=== PATIENT | male | born 1950 ===

== ENCOUNTER 2023-10-17 16:03 | Observation (INO) ==
--- NOTE | 2023-10-17 16:19 | Emergency Department Note ---
Impression & Plan Chest pain ED Provider Note HISTORY OF PRESENT ILLNESS: Patient is a 72-year-old male presenting with chest pain. Patient reports that he has had recurrent episodes of chest pain in the last 3 days. He states that today he was having crushing chest pain" felt like an elephant was sitting on my chest." He was diaphoretic and short of breath. He resides at [facility] facility and they called 911. On EMS arrival, the patient was diaphoretic and had a heart rate of 40. His blood pressure was 150s systolic and they started pacing him. They report that the patient's chest pain improved with pacing. They called medical command and I asked that they stop pacing him and his blood pressure and heart rate remained stable. Patient is not currently on any anticoagulation. He does have a history of stents in his right leg. He is not currently on any anticoagulation or antiplatelet therapy. He was given 324 mg of p.o. aspirin prehospital. On arrival to the ER, the patient is complaining of crushing chest pain. ROS: as above PHYSICAL EXAM: Constitutional: Patient appears in no acute distress. HENT: Head: Normocephalic and atraumatic. Eyes: EOMI, PERRL Mouth/Throat: Mucous membranes moist. Neck: Trachea midline. Neck supple. Cardiovascular: RRR, No murmurs, rubs or gallops. Intact distal pulses. Pulmonary/Chest: No respiratory distress. Breath sounds clear and equal bilaterally. No wheezes or rales. Abdominal: Abdomen soft, no tenderness, rebound or guarding. Musculoskeletal: No edema, tenderness or deformity noted. Skin: Warm and dry. No rash, erythema, pallor or cyanosis Psychiatric: Appropriate mood and affect for situation. Neurological: Alert and keenly responsive. CN II-XII grossly intact, moving all extremities equally and fully. MDM: - Patient's second prehospital EKG that was transmitted by EMS showed that the patient has significant ST depressions in lead II and ST elevations in aVL, V4, V5 and V6. He was alerted as a heart alert prehospital. - Vitals signs showed hypertension. - History obtained via patient. Patient presents with chest pain. Patient reports recurrent chest pain for the last 3 days. [facility] he developed substernal chest pain that was a crushing sensation. He felt like elephant's were sitting on his chest. The facility called 911. On EMS arrival, the patient was found to be diaphoretic and complaining of pain. He was given aspirin. On arrival to the ER, patient is still complaining of chest pain. Denies any history of cardiac stents. Denies any DVT or PE history. He is not currently on anticoagulation. - Chronic conditions affecting care: Acute arterial ischemia of the right lower extremity - Differential diagnoses include, but are not limited to: Acute coronary syndrome; pulmonary embolism; dissection; tension pneumothorax; esophageal rupture; pneumonia - Order placed for continuous cardiac monitoring. At this time, monitor showed rate of 56 bpm with normal sinus rhythm, per my interpretation. - External medical records reviewed. EMS run sheet was reviewed. Patient was vitally stable and route. - EKG interpreted by myself showed normal sinus rhythm. Rate 60 bpm. QTc is 420. Noted to have some ST elevation in V3 through V5. Also noted to have some ST depressions in leads II and subtly in lead III. - Dr. Johnson with interventional cardiology came to ER to discuss lab support tech with patient. - Discussion was had with home health care provider about patient's case and need for admission - Hospitalist consulted for admission - Patient admitted to [facility] service for further evaluation and management. - Patient taken to lab support tech and admit to [facility] hospitalist after ASSESSMENT AND PLAN: Diagnosis: chest pain Plan: to lab support tech Past Med/Surg History Social History Smoking Status: Current some day smoker Feels Safe at Home: Yes Allergies Allergies Allergy/AdvReac Type Severity Reaction Status Date / Time No Known Allergies Allergy Unverified 10/17/23 16:19 Home Meds Home Medications Medication Instructions Recorded Confirmed acetaminophen 325 mg tablet 650 mg PO QID PRN pain or headache 10/17/23 10/17/23 multivitamin with minerals 1 tab PO DAILY 10/17/23 10/17/23 prazosin 1 mg capsule 1 mg PO HS 10/17/23 10/17/23 quetiapine 50 mg tablet (Seroquel) 50 mg PO HS 10/17/23 10/17/23 sertraline 100 mg tablet 100 mg PO DAILY 10/17/23 10/17/23 sertraline 50 mg tablet 50 mg PO DAILY 10/17/23 10/17/23 Results & Data (ED) Vital Signs Vital Signs - 24 hr 10/17/23 16:07 10/17/23 16:09 10/17/23 16:10 Temperature 36.5 C Temperature Source Oral Pulse Rate 53 L 49 L 53 L Pulse Rate from SpO2 Sensor 53 L Respiratory Rate 16 21 19 Respiratory Depth Normal Blood Pressure 189/77 H Blood Pressure Mean 114 Pulse Oximetry 99 100 Oxygen Delivery Method Room Air Oxygen Flow Rate Sepsis Recent Fever Within 48 Hours No Sepsis New/Unexplained Change in Mental Status No Sepsis Action Taken by Nursing No Action Required 10/17/23 16:10 10/17/23 16:14 10/17/23 16:39 Temperature Temperature Source Pulse Rate 56 L Pulse Rate from SpO2 Sensor Respiratory Rate Respiratory Depth Blood Pressure 189/77 H Blood Pressure Mean 114 Pulse Oximetry 96 Oxygen Delivery Method Room Air Oxygen Flow Rate 0 Sepsis Recent Fever Within 48 Hours Sepsis New/Unexplained Change in Mental Status Sepsis Action Taken by Nursing Laboratory Data 10/17/23 16:20 Discharge Plan Visit Data Chief Complaint: Chest Pain ED Provider: Kayleigh Ramos Discharge Problem: Chest pain Forms Stand Alone Forms: [facility] Prescriptions Prescriptions: No Action multivitamin with minerals Tablet 1 tab PO DAILY quetiapine [Seroquel] 50 mg Tablet 50 mg PO HS prazosin 1 mg Capsule 1 mg PO HS sertraline 100 mg Tablet 100 mg PO DAILY sertraline 50 mg Tablet 50 mg PO DAILY acetaminophen 325 mg Tablet 650 mg PO QID PRN (Reason: pain or headache) Referrals Referrals: PCP,NO [Primary Care Provider] -
--- NOTE | 2023-10-17 16:24 | Pre Anesthesia Assessment ---
Date of Service October 17, 2023 Pre Sedation Assessment Vital Signs Temp Pulse Resp BP Pulse Ox O2 Del Method O2 Flow Rate 10/17/23 16:14 96 Room Air 0 10/17/23 16:10 189/77 H 10/17/23 16:10 53 L 19 100 10/17/23 16:09 49 L 21 10/17/23 16:07 97.7 F 53 L 16 189/77 H 99 Room Air Cardiovascular + regular rate Respiratory + respiratory effort normal Pre-Sedation Airway Assessment Smoking Status: Current some day smoker Hx Sleep Apnea: No Hx Difficult Intubation: No Short, Thick Neck: No Thyromental Distance: > or= 3.5 Finger Breadths Mallampati Class: III ASA: ASA3 Procedure Planning Contraindications for Sedation: none Current Medications Reviewed: Yes Notes The planned sedation has been discussed with the patient. Informed Consent was obtained. I have identified the patient, determined the appropriateness of sedation and have assessed the patient immediately prior to the procedure. All medicine(s) and interventions are by my order.
--- NOTE | 2023-10-17 16:26 | Cardiology Consultation ---
Date of Consultation October 17, 2023 Assessment & Plan (1) Chest pain: Plan Patient with prior ASCVD history here with acute onset severe chest pain and subtle ST changes on ECG. Some suspicion for ACS and with ongoing severe chest pain recommend further evaluation with cardiac catheterization. No apparent contraindications to procedure. Discussed risks, benefits, alternatives of procedure with patient and they are willing to proceed. Further recommendations pending findings of coronary angiography. History of Present Illness History of Present Illness Mr. North is a 72-year-old male here with acute chest pain, subtle ECG changes suspicious for ACS. Patient seen emergently in the ED after heart alert activated en route. Patient is from [place] and is [facility] Details of his prior cardiovascular history unclear. He states had prior stent to his right leg and denies prior heart catheterization. Does state he was previously seen by clinical professor at the [facility] for [facility]. Patient denies history of diabetes, stroke, kidney issues. Today developed acute substernal chest pain radiating to his right shoulder. Describes as crushing, like elephant sitting on my chest. States has had intermittent similar pain 3 times over the last few days at time of arrival chest pain 8 out of 10. Per report patient was bradycardic to 40, diaphoretic at some point during transport and was transiently transcutaneously paced. ECG and route showed sinus rhythm with subtle concave up ST elevation in V4, V5, no reciprocal changes. Social history: Still smokes. Lives with family in [place]. Alejandro Pedraza [phone] Allergies Allergy/AdvReac Type Severity Reaction Status Date / Time No Known Allergies Allergy Unverified 10/17/23 16:19 Home Medications Medication Instructions Recorded Confirmed Type acetaminophen 325 mg tablet 650 mg PO QID PRN pain or headache 10/17/23 10/17/23 History multivitamin with minerals 1 tab PO DAILY 10/17/23 10/17/23 History prazosin 1 mg capsule 1 mg PO HS 10/17/23 10/17/23 History quetiapine 50 mg tablet (Seroquel) 50 mg PO HS 10/17/23 10/17/23 History sertraline 100 mg tablet 100 mg PO DAILY 10/17/23 10/17/23 History sertraline 50 mg tablet 50 mg PO DAILY 10/17/23 10/17/23 History Patient History Social History Smoking Status: Current some day smoker Feels Safe at Home: Yes Review of Systems Review of Systems: Not completed in the setting of emergent situation Physical Exam Physical Exam: General: Uncomfortable HEENT: Sclerae anicteric Lungs: Clear anteriorly Cardiac: Regular rate and rhythm, no murmurs. Vascular: 2+ radial Abdomen: Soft, nontender Extremities: Well perfused, no peripheral edema Neuro: Nonfocal Psych: Alert orient x3, normal affect and mood Results & Data Vital Signs (Past 12 Hours) Vital Signs Temp Pulse Resp BP Pulse Ox O2 Del Method O2 Flow Rate 10/17/23 16:14 96 Room Air 0 10/17/23 16:10 189/77 H 10/17/23 16:10 53 L 19 100 10/17/23 16:09 49 L 21 10/17/23 16:07 97.7 F 53 L 16 189/77 H 99 Room Air PG Care Time/CCT Total # of Minutes Spent Total Time Spent with Patient: Total time spent is greater than 50% in coordination of care (as documented) at patient's floor/unit and/or counseling patient: Coding Level of Care Code 19343 ER DEPT VISIT MOD LVL 4 Diagnoses Chest pain R07.9
[2023-10-17] MEDS: HEPARIN (PORCINE) 1000 UNIT/ML 10 ML (CATH LAB USE ONLY) ONE (16:45)
[2023-10-17] MEDS: MIDAZOLAM HCL 1 MG/ML 2ML VIAL ONE (16:45)
[2023-10-17] MEDS: fentaNYL citrate PF 100 MCG/2 ML VIAL ONE (16:45)
[2023-10-17] MEDS: niCARdipine HCL INJ 2.5 MG/ML 10 ML AMP ONE (16:46)
[2023-10-17] MEDS: OPTIRAY 350 ONE (16:46)
[2023-10-17] MEDS: NITROGLYCERIN/D5W 100MCG/ML 20ML SYR ONE (16:46)
[2023-10-17 16:59] LABS: Alanine Aminotransferase 6 U/L (7-52); Albumin Globulin Ratio 1.3 (0.9-2); Alkaline Phosphatase 44 U/L (34-104); Anion Gap 6 (3-11); Aspartate Aminotransferase 16 U/L (13-39); BUN Creatinine Ratio 18.1 (10-20); Bilirubin,Total 0.3 mg/dl (0.2-1.0); Blood Urea Nitrogen 17 mg/dl (6-23); Calcium 9.4 mg/dl (8.6-10.3); Carbon Dioxide 25 mmol/L (21-32); Chloride 106 mmol/L (98-107); Est GFR (African American) 94.2 ml/min; Est GFR (Non-African American) 81.2 ml/min; Globulin 3.2 gm/dl (2.5-4.0); Glucose 89 mg/dl (70-99(Fasting)); Lipase 35 U/L (11-82); Potassium 4.2 mmol/L (3.5-5.1); Sodium 137 mmol/L (136-145); Total Protein 7.2 gm/dl (6.0-8.3)
[2023-10-17 17:02] LABS: Troponin I High Sensitivity 12.7 pg/ml (0-20)
--- NOTE | 2023-10-17 17:05 | Post Anesthesia Assessment ---
Date of Service October 17, 2023 Post Sedation Assessment Vital Signs Temp Pulse Pulse Resp BP BP Pulse Ox 10/17/23 17:00 55 L 18 131/89 96 10/17/23 16:55 52 L 18 141/85 H 96 10/17/23 16:39 56 L 10/17/23 16:14 96 10/17/23 16:10 189/77 H 10/17/23 16:10 53 L 19 100 10/17/23 16:09 49 L 21 10/17/23 16:07 97.7 F 53 L 16 189/77 H 99 O2 Del Method O2 Flow Rate 10/17/23 17:00 Room Air 10/17/23 16:55 Room Air 10/17/23 16:39 10/17/23 16:14 Room Air 0 10/17/23 16:10 10/17/23 16:10 10/17/23 16:09 10/17/23 16:07 Room Air Recovery Score Activity: Moves 4 extremities Respiration: Deep Breath/Cough Circulation: +/-20% PreAnes Value Consciousness: Fully Awake Oxygen Saturation: > 92% On Room Air Post Anesthesia Score: 10 Discharge Sedation Level of Care: Fast Track Phase II Post Sedation Plan On clinical assessment, the patient appears to have tolerated the sedation without complications. Patient is recovering as anticipated. Patient will continue to be monitored by nursing and may be discharged when sedation discharge criteria are met per below protocol. Upon Completions of procedure up to 15 minutes continue every 5 minute vital signs and the P.A.R. score; then discharge to a Phase I or Fast Track to Phase II per the following guidelines: * Discharge Patient to appropriate Phase II area if PAR is 8 or greater or return to pre- procedure baseline. The post - procedure orders will be as directed. * If PAR score is less than 8 or not return to pre-procedure baseline then patient will follow Phase I monitoring till PAR is reached for Phase II. The Phase I may be done in procedure room or may call to secure a Phase I area. * If naloxone or flumazenil are used for reversal, hold in Phase I for continued monitoring from when last reversal dose was given for a minimum of 60 minutes or longer pending the nurse and/or physician discretion of patient condition before discharge to Phase II. Please call the Sedation Physician to re-evaluate and complete post-note for discharge to Phase II area. Do NOT discharge from procedure sedation or Phase 1 until post- sedation evaluation note is complete by procedure /sedation MD Sedation Discharge Instructions to be given to the patient at discharge to home.
--- NOTE | 2023-10-17 17:16 | History & Physical Report ---
Date of Service October 17, 2023 Assessment & Plan (1) Chest pain: Plan: Patient with sudden onset chest pain 8/10 Pain radiates between his shoulder blades, improved to 1/10 with a tripod position.? Diffuse ST changes on EKG consistent with pericarditis. Echo is pending. CRP is not elevated Patient denies recent respiratory symptoms however on discussion with [facility] patient was treated for an upper respiratory in September 04. ?Pericarditis. Troponin is normal. Echo is pending History of prior cardiac stents, aspirin resumed as noted. Patient recently travel by flight to [place] and endorses left leg discomfort intermittently which she has had before but which has recurred in addition to shortness of breath and some pain with deep breathing. D-dimer was elevated. Due to elevated D-dimer, pain between shoulder blades, and chest pain with additional risk factors CTA was ordered with prehydration. CTA does not show any evidence of PE or acute dissection. Lower extremity Dopplers pending for follow-up. bronchial wall thickening suspicious for infectious/inflammatory process is noted Troponin trended (2) PTSD (post-traumatic stress disorder): Plan: Patient is a resident of [facility] who is at [facility] locally for PTSD/mental health treatment. He has a former history of crack/alcohol use which has been in remission for over a decade. [facility] patient had previously been on mirtazapine 30 mg daily, olanzapine 20 mg daily, prazosin 4 mg daily, duloxetine 60 mg daily, and aspirin however these were all discontinued in September. Fill record shows patient had been taking sertraline 150 mg daily, Seroquel 50 mg at bedtime, and prazosin 1 mg at bedtime. Patient reports he has not been taking medications in several weeks, and is not sure what medications he was last on. Low risk of withdrawal as he has not been on any medications for several weeks. Once past medication been clarified can restart at a low dose and uptitrate as clinically indicated. Currently he does not have a anxiety/depression/PTSD acute decompensation. Denies SI/HI (3) CAD (coronary artery disease): Plan: Patient has not been taking any medications for several months Patient has indwelling cardiac stents, aspirin 81 mg resumed Patient denies medication allergies. Presumably should be on atorvastatin 40 mg. Lipid panel pending. 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 He is a a [facility] patient. Per EMS he was paced for rate of 40. On arrival to the hospital he continued to have crushing substernal chest pain. Received aspirin full dose prehospital. Patient seen postcatheterization, normal coronary arteries although he has multiple indwelling RCA stents noted. Patient notes that he did have stents placed which she thought were is in his groin but this was in the setting of chest pain clarify that is likely they used groin access to place cardiac stent s. He reports this was this past May. Patient reports he has 8/10 chest pain while laying back which improves to a 1/10 when in the tripod position.? Diffuse changes on EKG consistent with pericarditis. Patient denies recent fever, cough, and flulike symptoms. No dysuria. No diarrhea/constipation. He does endorse that his pain radiates in between his shoulder blades. He reports he is a little numb intermittently on his right side with no history of strokes. He arrived in [place] after taking a several hour flight from [facility]. He arrived here last Sunday to go to [facility] for PTSD treatment. He reports that he does have a history of crack and alcohol abuse but this has been in remission since 2011 [facility]. Patient's last known medications were as follows. These were active September 04, 2023 however for some reason which is unclear were all moved to inactive status. Full records pending fax from [facility] in [facility], medical request faxed to [phone] Mirtazapine 30 mg daily Olanzapine 20 mg daily Prazosin 4 mg daily Duloxetine 60 mg daily Aspirin 81 mg Given unclear medical reconciliation (patient is not a good historian of his medications, and last known reconciliation is substantially different from fill history with Seroquel/sertraline, and above medications were listed as inactive for unclear reasons and patient has not been taking any medications for 6 around 6 months will defer acute initiation of pharmacologic therapy until intendant medications are clear and full records are faxed. At this time he feels his depression/anxiety are reasonably controlled and does not need emergent initiation of new medications and has he has not been taking any medications for several weeks is not at risk of acute precipitated withdrawal Allergies Allergy/AdvReac Type Severity Reaction Status Date / Time No Known Allergies Allergy Unverified 10/17/23 16:19 Home Medications Medication Instructions Recorded Confirmed Type acetaminophen 325 mg tablet 650 mg PO QID PRN pain or headache 10/17/23 10/17/23 History multivitamin with minerals 1 tab PO DAILY 10/17/23 10/17/23 History prazosin 1 mg capsule 1 mg PO HS 10/17/23 10/17/23 History quetiapine 50 mg tablet (Seroquel) 50 mg PO HS 10/17/23 10/17/23 History sertraline 100 mg tablet 100 mg PO DAILY 10/17/23 10/17/23 History sertraline 50 mg tablet 50 mg PO DAILY 10/17/23 10/17/23 History Past Med/Surg History Social History Smoking Status: Current some day smoker Feels Safe at Home: Yes Physical Exam Physical Exam: General: A&Ox3. NAD. Cooperative. HEENT: Atraumatic, normocephalic. Vision/hearing grossly intact Pulm: Trace end expiratory scattered wheezing, without rales/rhonchi symmetrical chest rise. No increased work of breathing. No respiratory distress. Cardiac: RRR, -mrg. Radial pulses intact and symmetrical. Chest pain improves in tripod position Abdominal: Nontender, nondistended, soft. BS present. Ext: No pitting edema. RIGHT leg laterally TTP, <3cm calf assymetry preent. Sensation/strength grossly intact Results & Data Results & Data Vital Signs (Past 12 Hours) Vital Signs Temp Pulse Pulse Resp BP BP Pulse Ox 10/17/23 17:00 55 L 18 131/89 96 10/17/23 16:55 52 L 18 141/85 H 96 10/17/23 16:39 56 L 10/17/23 16:14 96 10/17/23 16:10 189/77 H 10/17/23 16:10 53 L 19 100 10/17/23 16:09 49 L 21 10/17/23 16:07 36.5 C 53 L 16 189/77 H 99 O2 Del Method O2 Flow Rate 10/17/23 17:00 Room Air 10/17/23 16:55 Room Air 10/17/23 16:39 10/17/23 16:14 Room Air 0 10/17/23 16:10 10/17/23 16:10 10/17/23 16:09 10/17/23 16:07 Room Air Code Status & VTE Plan VTE Prophylaxis Plan VTE Prophylaxis will be ordered: Yes PG Care Time/CCT Total # of Minutes Spent Total Time Spent with Patient: Total time spent is greater than 50% in coordination of care (as documented) at patient's floor/unit and/or counseling patient: Coding Level of Care Code 01378 INT INP/OBS CARE 3/75MIN Diagnoses Chest pain R07.9 PTSD (post-traumatic stress disorder) F43.10 CAD (coronary artery disease) I25.10 Substance abuse in remission F19.11 Tobacco abuse Z72.0
--- NOTE | 2023-10-17 17:17 | Cardiac Catheterization ---
[facility] Data: Visual Journalist Cardiac Status Clinical evaluation leading to the procedure CAD Presenation: Unstable angina Anginal Classification: CCS IV Diagnostic Physicians Name: Dereck Johnson MD Closure Device Recommendations: None Cardiac Cath Procedure Full Procedure Date October 17, 2023 Pre-Procedure Diagnosis Pre-Procedure Diagnosis: Acute Coronary Syndrome AUC Score AUC Score: 7 Post-Procedure Diagnosis Post-Procedure Diagnosis: Moderate CAD and Normal Intracardiac Pressures Procedure(s) Performed Procedure(s) Performed: Coronary Angiography and Left Heart Cath Supervisor Extrusion Dereck Johnson MD Sterile Process Coordinator(s) Diebler Estimated Blood Loss Estimated Blood Loss: 10 Medication(s) Medication(s): Fentanyl, Heparin, Lidocaine 1%, Nicardipine, Nitroglycerin and Versed Summary of Findings Indication: Suspected ACS Access: 6 Fr right radial artery Catheters: Diagnostic JL 3.5, JR4 Findings: LM -normal caliber, long vessel, 40% distal stenosis prior to bifurcation LAD -medium caliber, 30% ostial, 30% earlymid stenosis at takeoff of D1, 40% latemid stenosis, distal vessel without significant disease and wraps around apex. Circumflex -medium caliber, overlapping stents from ostium to distal vessel widely patent without significant ISR. High jailed OM1 with 70% ostial stenosis. Medium OM 3 without disease. RCA -dominant, medium caliber, 30 to 40% proximal to mid disease, distal vessel without significant disease. Medium PDA without disease. LVEDP -3 Arterial Closure: TR band Summary: 1. Moderate nonobstructive coronary artery disease -40% distal left main 40% mid LAD Ostial to distal circumflex stents widely patent. Jailed OM1 70% ostial 30% proximal to mid RCA 2. Normal intracardiac filling pressure Recommendations: No high risk or obstructive CAD to explain patient's current chest pain. Will admit to telemetry for further evaluation of noncardiac causes of chest pain. Echocardiogram in the a.m. ASCVD risk factor modification Hemodynamics Rest Ao:: 102/38/76 Final Ao: 136/57/88 LV: 119/3 Recommendations Recommendations: None Radiation Exposure (mGy) 554 Contrast (mls) 40 Anesthesia Moderate [id number] Procedural Complication(s) None Disposition PCU I attest to the content of the Intraoperative Record and any orders documented therein. Any exceptions are noted below. [facility] Card Cath Procedure Codes Cardiac Catheterization Procedure 1: Cardiovascular Cath Procedures: 45722 Coronaries and LHC (+/-LV) Moderate Sedation Procedure 1: Sedation/Anesthesia: 45249 Mod Sedation by the same physician;Init15 Min Child Age 5 & Up PG Care Time/CCT Total # of Minutes Spent Total Time Spent with Patient: Total time spent is greater than 50% in coordination of care (as documented) at patient's floor/unit and/or counseling patient:
[2023-10-17 17:57] LABS: Basophils # (auto) 0.03 K/uL (0.00-0.20); Basophils % (auto) 0.6 %; Eosinophils % (auto) 2.1 %; Hematocrit (blood only) 31.1 % (42.0-52.0); Hemoglobin 10.3 g/dl (14.0-18.0); Immature Granulocytes # (auto) 0.01 K/uL (0.01-0.20); Immature Granulocytes % (auto) 0.2 %; Lymphocytes # (auto) 2.06 K/uL (1.20-3.40); Lymphocytes % (auto) 43.8 %; Mean Corpuscular Hemoglobin 26.3 pg (25.0-34.0); Mean Corpuscular Hgb Conc 33.1 g/dL (32.0-36.0); Mean Corpuscular Volume 79.5 fL (80.0-100.0); Mean Platelet Volume 9.3 fL (9.4-12.4); Monocytes # (auto) 0.48 K/uL (0.11-0.59); Monocytes % (auto) 10.2 %; Neutrophils # (auto) 2.02 K/uL (1.40-6.50); Neutrophils % (auto) 43.1 %; Platelet Count 209 K/uL (130-400); RDW Coefficient of Variation 18.3 % (11.5-14.5); RDW Standard Deviation 53.1 fL (36.4-46.3); Red Blood Count 3.91 M/uL (4.70-6.10)
[2023-10-17 17:59] LABS: D Dimer 1820 ug/L FEU (0-500)
[2023-10-17] MEDS: OPTIRAY 320 125ml IV ONE (18:25)
[2023-10-17 18:34] LABS: C Reactive Protein < 0.50 mg/dl (0-0.5)
--- NOTE | 2023-10-17 18:44 | CT Scan Report ---
CT angio chest PE protocol CLINICAL HISTORY: PE TECHNIQUE: Multidetector row helical CT of the chest was performed with angiographic protocol. Trevino l and sagittal reformations were obtained. Coronal and sagittal MIPS were obtained from the axial jc a set and were submitted for review. Automated dose lowering techniques and/or adjustment according to patient size were utilized for this exam. CT DOSE: 709.89 mGy.cm Comparison: None available at the time of this dictation. FINDINGS: Lungs and pleura: Bronchial wall thickening and mild emphysema are seen. Heart and pericardium: Heart size is normal. No pericardial effusion. Vessels: No evidence of pulmonary embolism. Mediastinum and rosa: Subcentimeter lymph nodes are seen. Chest wall and lower neck: Unremarkable. Abdomen: Unremarkable. Bones: Degenerative changes in the thoracic spine. IMPRESSION: 1. No acute abnormality and in particular no evidence of pulmonary embolus. 2. Bronchial wall thickening may represent infectious/inflammatory process. ACT 112: Negative or not required by law. Electronically signed by: Rafa Og M.D. 10/17/2023 6:41 PM
[2023-10-17] MEDS: LACTATED RINGER'S 1,000 ML IV ONE (18:47)
[2023-10-17] MEDS ORDERED: NICOTINE 14 MG/24 HR PATCH TD PRN (19:17)
[2023-10-17 20:00] LABS: Ferritin 7.4 ng/ml (8-388)
[2023-10-17] MEDS: SODIUM CHLORIDE 0.9% 1,000 ML IV SCH (20:43)
[2023-10-17 20:47] LABS: Influenza A virus by PCR Negative (Neg); Influenza B virus by PCR Negative (Neg); RSV by PCR Negative (Neg); SARS CoV2 RNA(COVID-19) Ceph NEGATIVE (Negative)
--- NOTE | 2023-10-17 21:22 | Ultrasound Report ---
Exam(s): US VENOUS BILATERAL LOWER EXTREMITIES EXAM: US Duplex Bilateral Lower Extremities Veins CLINICAL HISTORY: Reason for exam: ddimer, leg pain. TECHNIQUE: Real-time duplex ultrasound scan of the bilateral lower extremity veins integrating B-mode two-dimensional vascular structure, Doppler spectral analysis, color flow Doppler imaging and compression. COMPARISON: No relevant prior studies available. FINDINGS: Right deep veins: Unremarkable. No DVT in the right common femoral, femoral, proximal deep femoral or popliteal veins. The veins demonstrate normal color flow, are normally compressible, with normal phasic flow and/or augmentation response. Right superficial veins: Unremarkable. No thrombus in the visualized right great saphenous vein. Left deep veins: Unremarkable. No DVT in the left common femoral, femoral, proximal deep femoral or popliteal veins. The veins demonstrate normal color flow, are normally compressible, with normal phasic flow and/or augmentation response. Left superficial veins: Unremarkable. No thrombus in the visualized left great saphenous vein. Soft tissues: No acute findings. IMPRESSION: Normal bilateral lower extremity duplex venous ultrasound. Electronically signed by: Gavin Sweeney M.D. 10/17/23 21:22 PM
[2023-10-17] MEDS: PRAZOSIN HCL 1 MG CAP PO PRN (21:27)
[2023-10-17] MEDS: ACETAMINOPHEN 325 MG TAB PO PRN (23:58)
[2023-10-18 04:35] LABS: Basophils # (auto) 0.03 K/uL (0.00-0.20); Basophils % (auto) 0.8 %; Eosinophils # (auto) 0.11 K/uL (0.00-0.50); Eosinophils % (auto) 2.8 %; Hematocrit (blood only) 29.9 % (42.0-52.0); Hemoglobin 9.7 g/dl (14.0-18.0); Lymphocytes # (auto) 1.65 K/uL (1.20-3.40); Lymphocytes % (auto) 42.3 %; Mean Corpuscular Hemoglobin 25.5 pg (25.0-34.0); Mean Corpuscular Hgb Conc 32.4 g/dL (32.0-36.0); Mean Corpuscular Volume 78.7 fL (80.0-100.0); Monocytes # (auto) 0.48 K/uL (0.11-0.59); Monocytes % (auto) 12.3 %; Neutrophils # (auto) 1.63 K/uL (1.40-6.50); Neutrophils % (auto) 41.8 %; Platelet Count 171 K/uL (130-400); RDW Standard Deviation 51.7 fL (36.4-46.3)
[2023-10-18 04:40] LABS: Anion Gap 6 (3-11); BUN Creatinine Ratio 12.9 (10-20); Blood Urea Nitrogen 13 mg/dl (6-23); C Reactive Protein < 0.50 mg/dl (0-0.5); Calcium 9.2 mg/dl (8.6-10.3); Carbon Dioxide 24 mmol/L (21-32); Chloride 106 mmol/L (98-107); Chol HDL Ratio 3.6 (0-5); Cholesterol 176 mg/dl (0-200); Creatinine Clr Calc Pharmacy 60.5 ml/min; Est GFR (African American) 86.3 ml/min; Est GFR (Non-African American) 74.5 ml/min; Glucose 89 mg/dl (70-99(Fasting)); HDL Cholesterol 49 mg/dl; LDL Cholesterol Calculated 108 mg/dl; Potassium 4.5 mmol/L (3.5-5.1); Sodium 136 mmol/L (136-145); Triglycerides 96 mg/dl (0-150); VLDL Cholesterol 19 mg/dl (0-30)
--- NOTE | 2023-10-18 06:52 | Hospitalist Progress Note ---
Date of Service October 18, 2023 Assessment & Plan (1) Chest pain: Plan: Patient with sudden onset chest pain 8/10 Pain radiates between his shoulder blades, improved to 1/10 with a tripod position.? Diffuse ST changes on EKG consistent with pericarditis. Echo is pending. CRP is not elevated Patient denies recent respiratory symptoms however on discussion with [facility] patient was treated for an upper respiratory in September 04. ?Pericarditis. Troponin is normal. Echo is pending History of prior cardiac stents, aspirin resumed as noted. Patient recently travel by flight to [employer] and endorses left leg discomfort intermittently which she has had before but which has recurred in addition to shortness of breath and some pain with deep breathing. D-dimer was elevated. Due to elevated D-dimer, pain between shoulder blades, and chest pain with additional risk factors CTA was ordered with prehydration. CTA does not show any evidence of PE or acute dissection. Lower extremity Dopplers pending for follow-up. bronchial wall thickening suspicious for infectious/inflammatory process is noted Troponin trended (2) PTSD (post-traumatic stress disorder): Plan: Patient is a resident of [facility] who is at [facility] locally for PTSD/mental health treatment. He has a former history of crack/alcohol use which has been in remission for over a decade. [facility] had previously been on mirtazapine 30 mg daily, olanzapine 20 mg daily, prazosin 4 mg daily, duloxetine 60 mg daily, and aspirin however these were all discontinued in September. Fill record shows patient had been taking sertraline 150 mg daily, Seroquel 50 mg at bedtime, and prazosin 1 mg at bedtime. Patient reports he has not been taking medications in several weeks, and is not sure what medications he was last on. Low risk of withdrawal as he has not been on any medications for several weeks. Once past medication been clarified can restart at a low dose and uptitrate as clinically indicated. Currently he does not have a anxiety/depression/PTSD acute decompensation. Denies SI/HI (3) CAD (coronary artery disease): Plan: Patient has not been taking any medications for several months Patient has indwelling cardiac stents, aspirin 81 mg resumed Patient denies medication allergies. Presumably should be on atorvastatin 40 mg. Lipid panel pending. 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 NAD. Cooperative. HEENT: Atraumatic, normocephalic. Vision/hearing grossly intact Pulm: Trace end expiratory scattered wheezing, without rales/rhonchi symmetrical chest rise. No increased work of breathing. No respiratory distress. Cardiac: RRR, -mrg. Radial pulses intact and symmetrical. Chest pain improves in tripod position Abdominal: Nontender, nondistended, soft. BS present. Ext: No pitting edema. RIGHT leg laterally TTP, <3cm calf assymetry preent. Sensation/strength grossly intact Results & Data Results & Data Vital Signs (Past 12 Hours) Vital Signs Temp Pulse Resp BP Pulse Ox 10/18/23 06:00 45 L 11 L 98 10/18/23 06:00 135/74 10/18/23 05:00 50 L 14 99 10/18/23 04:00 120/66 10/18/23 04:00 48 L 14 98 10/18/23 03:00 56 L 20 98 10/18/23 02:00 119/61 10/18/23 02:00 58 L 18 98 10/18/23 01:00 54 L 0 L 98 10/18/23 00:05 37.1 C 10/18/23 00:00 121/65 10/18/23 00:00 69 14 121/65 98 10/17/23 23:29 59 L 10/17/23 23:00 60 18 96 10/17/23 22:00 53 L 17 99 10/17/23 21:30 69 24 99 10/17/23 21:17 70 19 100 10/17/23 21:17 158/86 H 10/17/23 21:15 56 L 20 99 10/17/23 21:01 55 L 18 99 10/17/23 21:01 157/56 H 10/17/23 21:00 55 L 21 100 10/17/23 20:45 149/76 H 10/17/23 20:45 54 L 13 100 10/17/23 20:31 121/73 10/17/23 20:31 65 20 100 10/17/23 20:30 65 17 98 10/17/23 20:15 171/84 H 10/17/23 20:15 55 L 22 90 10/17/23 20:00 150/84 H 10/17/23 20:00 57 L 17 100 10/17/23 19:53 36.9 C 10/17/23 19:47 64 25 H 100 10/17/23 19:47 129/88 10/17/23 19:45 61 26 H 99 10/17/23 19:35 64 26 H 99 10/17/23 19:35 133/86 10/17/23 19:30 62 19 100 10/17/23 19:15 57 L 22 92 10/17/23 19:01 153/74 H 10/17/23 19:01 49 L 24 98 10/17/23 19:00 53 L 18 100
[2023-10-18] MEDS: ENOXAPARIN INJ 40 MG/0.4 ML SYR SQ SCH (08:21)
[2023-10-18] MEDS: ASPIRIN 81 MG ECTAB PO SCH (08:21)
[2023-10-18 08:40] VITALS: TEMP 98.1
--- NOTE | 2023-10-18 16:18 | XCELERA ---
[id number]
--- NOTE | 2023-10-18 16:24 | Discharge Summary ---
Date of Service October 18, 2023 Admission HPI Per Admitting Provider 72-year-old male with a past medical history of anxiety/depression/PTSD he who presents to the ER with 3 days of recurrent chest pain which today was much worse in severity and associated with shortness of breath/diaphoresis. He is a a [facility] patient. Per EMS he was paced for rate of 40. On arrival to the hospital he continued to have crushing substernal chest pain. Received aspirin full dose prehospital. Patient seen postcatheterization, normal coronary arteries although he has multiple indwelling RCA stents noted. Patient notes that he did have stents placed which she thought were is in his groin but this was in the setting of chest pain clarify that is likely they used groin access to place cardiac stents. He reports this was this past May. Patient reports he has 8/10 chest pain while laying back which improves to a 1/10 when in the tripod position.? Diffuse changes on EKG consistent with pericarditis. Patient denies recent fever, cough, and flulike symptoms. No dysuria. No diarrhea/constipation. He does endorse that his pain radiates in between his shoulder blades. He reports he is a little numb intermittently on his right side with no history of strokes. He arrived in [place] after taking a several hour flight from [facility]. He arrived here last Sunday to go to [facility] for PTSD treatment. He reports that he does have a history of crack and alcohol abuse but this has been in remission since 2011 Reviewed care with [facility]. Patient's last known medications were as follows. These were active September 04, 2023 however for some reason which is unclear were all moved to inactive status. Full records pending fax from [facility] in [place], medical request faxed to [phone] Mirtazapine 30 mg daily Olanzapine 20 mg daily Prazosin 4 mg daily Duloxetine 60 mg daily Aspirin 81 mg Given unclear medical reconciliation (patient is not a good historian of his medications, and last known reconciliation is substantially different from fill history with Seroquel/sertraline, and above medications were listed as inactive for unclear reasons and patient has not been taking any medications for 6 around 6 months will defer acute initiation of pharmacologic therapy until intendant medications are clear and full records are faxed. At this time he feels his depression/anxiety are reasonably controlled and does not need emergent i nitiation of new medications and has he has not been taking any medications for several weeks is not at risk of acute precipitated withdrawal Admission Exam Per Admitting Provider General: A&Ox3. NAD. Cooperative. HEENT: Atraumatic, normocephalic. Vision/hearing grossly intact Pulm: Trace end expiratory scattered wheezing, without rales/rhonchi symmetrical chest rise. No increased work of breathing. No respiratory distress. Cardiac: RRR, -mrg. Radial pulses intact and symmetrical. Chest pain improves in tripod position Abdominal: Nontender, nondistended, soft. BS present. Ext: No pitting edema. RIGHT leg laterally TTP, <3cm calf assymetry preent. Sensation/strength grossly intac Principal Diagnosis chest pain Discharge Exam Gen: well appearing patient in NAD HEENT: AT NC MMM Resp: CTAB no wheezing no increased work of breathing CV: RRR no m/r/g clinically well perfused Abd: soft, non-tender, non-distended MSK: no obvious deformities Skin: no rashes or bruising Neuro: alert and oriented Psych: appropriate mood and affect Discharge Data Allergies Allergy/AdvReac Type Severity Reaction Status Date / Time No Known Allergies Allergy Unverified 10/17/23 16:19 Consultations 10/17/23 16:19 ED Decision to Admit Stat Procedures Performed Operation Date: 10/17/23 16:30 Actual Procedures p Cineradiography w/Routine Exam - Dereck Johnson MD p Cath, Left with Cors and Vent - Dereck Johnson MD Ordered Studies Chest CTA 10/17/23 18:03 FINDINGS: Lungs and pleura: Bronchial wall thickening and mild emphysema are seen. Heart and pericardium: Heart size is normal. No pericardial effusion. Vessels: No evidence of pulmonary embolism. Mediastinum and rosa: Subcentimeter lymph nodes are seen. Chest wall and lower neck: Unremarkable. Abdomen: Unremarkable. Bones: Degenerative changes in the thoracic spine. IMPRESSION: 1. No acute abnormality and in particular no evidence of pulmonary embolus. 2. Bronchial wall thickening may represent infectious/inflammatory process. Venous Doppler Study 10/17/23 19:14 FINDINGS: Right deep veins: Unremarkable. No DVT in the right common femoral, femoral, proximal deep femoral or popliteal veins. The veins demonstrate normal color flow, are normally compressible, with normal phasic flow and/or augmentation response. Right superficial veins: Unremarkable. No thrombus in the visualized right great saphenous vein. Left deep veins: Unremarkable. No DVT in the left common femoral, femoral, proximal deep femoral or popliteal veins. The veins demonstrate normal color flow, are normally compressible, with normal phasic flow and/or augmentation response. Left superficial veins: Unremarkable. No thrombus in the visualized left great saphenous vein. Soft tissues: No acute findings. IMPRESSION: Normal bilateral lower extremity duplex venous ultrasound Hospital Course (1) Chest pain: Patient with sudden onset chest pain 04/12 with radiation to the shoulder blades. Taken immediately to the optical laboratory technician. Cath neg. [address] and patent[address] EKG without signs of acute ischemia. Troponin negative x2. ECHO without obvious signs of new ischemic changes. Would ideally have an ECHO to compare to, but with his coronary history these are likely chronic changes. Reassuring symptoms related to non-cardiac etiology. With recent flight, elevated d-dimer, and left leg discomfort important to r/o PE. CTA without PE or dissection. Bilateral do pplers without VTE. Bronchial wall thickening may be indication of inflammatory process. Most likely diagnosis would be self resolved muscle spasm. Resume ASA 81 mg. Would likely recommend statin initiation. LDL 108. Total 176. Patient asymptomatic upon my interview. Stable for discharge home with close follow up. (2) PTSD (post-traumatic stress disorder): Patient is a resident of [facility] who is at [facility] locally for PTSD/mental health treatment. He has a former history of crack/alcohol use which has been in remission for over a decade. [facility] patient had previously been on mirtazapine 30 mg daily, olanzapine 20 mg daily, prazosin 4 mg daily, duloxetine 60 mg daily, and aspirin however these were all discontinued in September. Fill record shows patient had been taking sertraline 150 mg daily, Seroquel 50 mg at bedtime, and prazosin 1 mg at bedtime. Patient reports he has not been taking medications in several weeks, and is not sure what medications he was last on. Low risk of withdrawal as he has not been on any medications for several weeks. Once past medication been clarified can restart at a low dose and uptitrate as clinically indicated. Currently he does not have a anxiety/depression/PTSD acute decompensation. Denies SI/HI (3) CAD (coronary artery disease): Patient has not been taking any medications for several months Patient has indwelling cardiac stents, aspirin 81 mg resumed Patient denies medication allergies. Presumably should be on high intensity statin. LDL 108. Total 176. 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 Discharge Plan Discharge Items Patient Disposition: Transfer [facility]al Health Fac Reason For Visit: CHEST PAIN Discharge Diagnosis: chest pain Activity: Per Instructions section Non-emergency contact: Primary Care Provider Call non-emergency contact if: you have any medication questions and your symptoms worsen Follow-up/Referrals: Candi Torres MD [Resident] - PCP,JEANNA [Primary Care Provider] - Diet: Heart Healthy Addtl Attending Provider Instructions: You were admitted to the hospital for evaluation of chest pain. Work up reassuring that this was not a cardiac cause of chest pain. There was not any narrowing of any of the vessels in your heart and the stent you had placed pre viously were all open and functioning. I would recommend taking a baby aspirin every day to keep any sort of blood clots from clinging to the stents. We did an ECHO (ultrasound of your heart) to look at function. You heart is pumping appropriately. I'd recommend discussing this further with your PCP. A discharge summary will be sent to your primary care physician to ensure continuity of care. Please bring this discharge summary with you to your next office appointment so that your provider can review it at that time. Follow-up appointments: Make a follow-up appointment with your PCP within the next week. It is very important that you follow up with them shortly after discharge from the hospital. Medications: Your medication list has been reviewed and reconciled upon discharge to ensure accuracy and continuity of care. An updated list of all your medications is included with your hospital discharge paperwork. Please review this list closely, and make note of any changes. Start: 81 mg aspirin daily Take your medications as instructed; do not skip a dose of your medicines. Make sure all of your doctors know every medicine you are taking (including [id number] medicines, vitamins, and supplements). Call your primary care provider before taking any new medicines (including over- the-counter medicines, vitamins, and supplements), because some of these may interact with your current medications, or may make your symptoms worse. Tell your primary care provider if you cannot afford your medications. CONTACT YOUR PRIMARY CARE PROVIDER if you experience any of the following: lightheadedness or dizziness shortness of breath Difficulty following your treatment plan, or difficulty taking medications CALL 911 OR GO TO THE EMERGENCY DEPARTMENT if you experience any of the following: Sudden, severe abdominal pain or nausea/vomiting Severe chest pain, or chest pain that radiates (moves) to your jaw or arm Sudden, severe shortness of breath or difficulty breathing Thank you for allowing us to participate in your care Pending Studies at Discharge: No Stand-Alone Forms: [facility] Skilled Items DNR: No Lines: None Urinary Catheter: No Medications and DC Order Prescriptions: New aspirin 81 mg Tablet,Delayed Release (Dr/Ec) 81 mg PO QAM Qty: 30 0RF Continued multivitamin with minerals Tablet 1 tab PO DAILY quetiapine [Seroquel] 50 mg Tablet 50 mg PO HS prazosin 1 mg Capsule 1 mg PO HS sertraline 100 mg Tablet 100 mg PO DAILY sertraline 50 mg Tablet 50 mg PO DAILY acetaminophen 325 mg Tablet 650 mg PO QID PRN (Reason: pain or headache) Discharge Orders: Discharge Order (Routine); Ordered 10/18/23 Ordered By: Candi Torres Admission Data Admit Date/Time: 10/17/23 17:05 Attending Provider: Aldo Tenorio Admit Provider: Dereck Johnson Primary Care Provider: PCP,NO Other Providers: Jonn Howell; [facility] Other Interventions: Discharge Summary Assessment (RN) Last Done: 10/18/23 16:29 Supervising Physician Co-Signing Physician Notes I personally examined the patient and verified all king points of history and exam, discussed case, and agree with decision making with Dr Torres Feels better, chest pain gone. Feels up to getting out of the hospital. Does have left shoulder painongoing for a few months. Notes after his heart cath his right arm does not work as well as it used to. Vitals noted, in general he is awake and alert pleasant no distress. HEENT normocephalic atraumatic mucous membranes moist. Breathing unlabored no accessory muscle use good effort. Skin shows no rashes no pallor or icterus. Left shoulder shows tenderness at his anterior shoulder margin and has pain limiting external rotation. Chest paintotally resolved. Extensive workup has ruled out ACS/coronary disease, aortic dissection, PE, pneumonia. Main differential left is really rib dysfunction/rib muscle spasmand given that his pain has let up, it is definitely safe to let him go home. Left shoulder painconsistent with a rotator cuff tendinitis (internal rotator)Voltaren gel for now, if that does not help in the coming weeks, p hysical therapy versus shoulder injection . Right arm dysfunctionnotes that this is since his heart cath in the fallno new symptoms, stable, okay to go back to his facility for now, would probably pursue brain imaginggiven that he relates that happened right after his heart cath 1 would have to wonder if he had a small stroke related to procedure, but obviously there would be no new management now. safe/stable for dischage, otherwise as above Resident Activity Tracking Resident Involvement: Resident Care Provided Care Provided: Adult Hospital Medicine
[2023-10-18 16:27] VITALS: RESP 22; O2SAT 100
[2023-10-18 16:30] VITALS: BP 149/84; PULSE 55
--- NOTE | 2023-10-18 18:12 | Billing Data ---
Date of Service October 18, 2023 Coding Level of Care Code 53335 IN/OBS DISCH 30 MIN/LESS
--- NOTE | 2023-10-18 18:16 | Billing Data ---
Date of Service October 18, 2023 Coding Level of Care Code 57767 IN/OBS DISCH 30 MIN/LESS
--- NOTE | 2023-10-19 05:35 | Electrocardiogram Report ---
Test Reason : Blood Pressure : / mmHG Vent. Rate : 060 BPM Atrial Rate : 060 BPM P-R Int : 162 ms QRS Dur : 082 ms QT Int : 420 ms P-R-T Axes : 069 -18 065 degrees QTc Int : 420 ms Sinus rhythm with Premature supraventricular complexes Possible Left atrial enlargement Septal infarct , age undetermined Abnormal ECG No previous ECGs available Confirmed by Zen Stacy ([id number]) on 10/19/2023 5:35:08 AM Referred By: REFERRED SELF Confirmed By:Zen Stacy
== END 2023-10-18 17:18 ==
LOC: ED 16:03 → CC 16:25 → 1E 16:25 → SUATTDRO 17:05 → 1E 18:16
DX: I25.110 Atherosclerotic heart disease of native coronary artery with unstable angina pectoris; Z79.899 Other long term (current) drug therapy; D50.9 Iron deficiency anemia, unspecified; F17.200 Nicotine dependence, unspecified, uncomplicated